=== PATIENT | female | born 1970 | race Caucasian/White ===

== ENCOUNTER 2017-03-03 21:26 | Inpatient (IN) ==
--- NOTE | 2017-03-03 21:51 | Emergency Department Note ---
Disposition Clinical Impression: Community acquired pneumonia Qualifiers: Laterality: right Lung location: lower lobe of lung Qualified Code(s): J18.1 - Lobar pneumonia, unspecified organism Sepsis Qualifiers: Sepsis type: sepsis due to unspecified organism Qualified Code(s): A41.9 - Sepsis, unspecified organism Disposition: Admitted As Inpatient Condition: Good Referrals: Jaclyn Thomas ROLL HAND [Primary Care Provider] - Forms: ED Satisfaction Letter SOB HPI - General Chief Complaint: ED Shortness of Breath/Dyspnea Stated Complaint: possible pneumonia came from [facility] Time Seen by Provider: 03/03/17 21:33 Source: patient Mode of arrival: private vehicle Limitations: no limitations Nursing Notes Reviewed: Yes Vital Signs Reviewed: Yes - History of Present Illness 47-year-old female history of non-oxygen dependent COPD who presents to the ER due to cough and fever with pneumonia. Reports that she started feeling unwell on Sunday. She was having fevers up to 104 at home. She states today she developed a cough and was seen at urgent care. She was told showed pneumonia was found to be hypoxic there. Patient presents here 88% on room air. She denies any chest pain. No sore throat, nausea, vomiting, diarrhea. No abdominal pain. She denies a history of cardiac disease, DVT or PE. Reviewed her prior x-ray showing right lower lobe pneumonia. She is noted to be tachycardic and hypoxic here. Placed on nasal cannula with resolution of hypoxia. Pt Subjective Complaint: shortness of breath, cough Onset (ago): day(s) Context: recent illness Severity: moderate Consistency/Duration: constant Improves with: nothing Worsens with: nothing Known history of: COPD Associated symptoms: Reports: fever, cough. Denies: chest pain, sputum production Treatment prior to arrival: none Cough present: Yes Cough Description: Involuntary Cough Frequency: Intermittent Sputum production: Yes Sputum Amount: None - Related Data Home oxygen amount: none Home Medications Medication Instructions Recorded Confirmed Proair Hfa 05/14/16 Spiriva 05/14/16 05/14/16 Symbicort 160/4.5 05/14/16 Previous Rx's Medication Instructions Recorded Azithromycin [Zithromax] 250 mg PO DAILY #6 tablet 05/14/16 Benzonatate [Tessalon] 200 mg PO TID PRN #30 capsule 05/14/16 GuaiFENesin ER [Mucinex] 600 mg PO BID #20 tbbp.12hr 05/14/16 methylPREDNISolone [Medrol] 4 mg PO TAPER #21 tablet 05/14/16 Allergies Allergy/AdvReac Type Severity Reaction Status Date / Time No Known Allergies Allergy Verified 05/14/16 17:09 All systems ED: reviewed and negative except as stated. Constitutional: Reports: fever, chills Cardiovascular: Denies: chest pain Respiratory: Reports: cough, dyspnea. Denies: sputum production Gastrointestinal: Denies: abdominal pain, nausea, vomiting Past Medical History - Past Medical History Attestation: Yes The following information was validated with the patient. 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 No wheezing). Absent: wheezes, prolonged expiratory phase - Cardiovascular Cardiovascular exam: Present: normal rhythm, tachycardia, normal heart sounds - Abdominal Exam Abdominal exam: Present: soft, Non-Tender. Absent: tenderness - Extremities Exam Extremities exam: Present: normal inspection, full ROM - Expanded Upper Extremity Exam Shoulder exam: Present: normal inspection, full ROM Arm exam: Present: normal inspection, full ROM Elbow exam: Present: normal inspection, full ROM Forearm/Wrist exam: Present: normal inspection, full ROM Hand exam: Present: normal inspection, full ROM - Expanded Lower Extremity Exam Hip/Pelvis exam: Present: normal inspection, full ROM Upper leg exam: Present: normal inspection, full ROM Knee exam: Present: normal inspection, full ROM Lower leg exam: Present: normal inspection, full ROM Ankle exam: Present: normal inspection, full ROM Foot/toe exam: Present: normal inspection, full ROM Neurovascular/Tendon exam: Absent: motor deficit, sensory deficit - Neurological Exam Neurological exam: Present: alert - Psychiatric Psychiatric exam: Present: normal affect - Skin Skin exam: Present: warm, dry, intact Course Course Narrative: Patient seen and examined. Placed on nasal cannula here. We will obtain an EKG as well as labs including lactate and blood cultures. - Reevaluation(s) Reevaluation #1: Discussed results of imaging and labs with the patient. Heart rate has improved here. She is currently on 4 L nasal cannula. Patient given Rocephin and Zithromax. Patient agreeable with being admitted to the hospital. Vital Signs Temperature 99.5 F 03/03/17 21:29 Pulse Rate 76 03/03/17 21:29 Respiratory Rate 22 03/03/17 21:29 Blood Pressure 99/57 03/03/17 21:29 O2 Sat by Pulse Oximetry 98 03/03/17 21: Temperature 99.5 F 03/03/17 21:29 Pulse Rate 96 03/04/17 01:19 EDT Respiratory Rate 18 03/04/17 01:19 EDT Blood Pressure 101/61 03/04/17 01:19 EDT O2 Sat by Pulse Oximetry 96 03/04/17 01:19 EDT Oxygen Delivery Oxygen Delivery Nasal Cannula Shortness of Breath/Dyspnea - [facility] Narrative Medical decision making narrative: 47-year-old female presents to the ER due to pneumonia from urgent care. Fever since Sunday then cough today. History of COPD however does not require oxygen supplementation. EKG does show sinus tachycardia. Chest x-ray with concern for right lower lung pneumonia. Given her tachycardia and hypoxia we obtained a CT of her chest which shows no evidence of PE with a right lower lobe pneumonia. Patient has an elevated white count of 17 here. Lactic acid is normal. Patient given 2 L of normal saline as well as Rocephin and Zithromax. Admitted to the hospitalist service for pneumonia and sepsis. - Lab Data Lab results reviewed: Yes I reviewed the patient's lab results. Result diagrams: 03/03/17 21:53 03/03/17 21:53 Lab Results 03/03/17 03/03/17 03/03/17 Range/Units 21:53 21:53 21:53 WBC 17.5 H (4.3-11.1) K/mcL RBC 3.88 (3.82-4.97) M/mcL Hgb 11.4 L (11.5-15.4) g/dL Hct 33.8 L (35.3-44.9) % MCV 87.1 (83.0-100.0) fL MCH 29.4 (28.0-33.3) pg MCHC 33.7 (31.6-35.5) g/dL RDW 15.0 H (11.5-14.5) % Plt Count 285 (140-400) K/mcL MPV 9.5 (9.4-12.4) fL Immature Gran % 2.9 (0-4) % Seg Neutrophils % 82.1 % Lymphocytes % 4.6 % Monocytes % 10.3 % Eosinophils % 0.0 % Basophils % 0.1 % Neutrophils # 14.4 H (1.6-8.9) K/mcL Lymphocytes # 0.8 (0.6-4.6) K/mcL Monocytes # 1.8 H (0.0-1.3) K/mcL Eosinophils # 0.0 (0.0-0.6) K/mcL Basophils # 0.0 (0.0-0.2) K/mcL Sodium 128 L (136-145) mEq/L Potassium 3.6 (3.5-4.5) mEq/L Chloride 94 L (98-109) mEq/L Carbon Dioxide 23 (19-29) mEq/L BUN 23 H (7-20) mg/dL Creatinine 0.68 (0.57-1.11) mg/dL Est GFR ( Amer) > 60 (> 60) Est GFR (Non-Af Amer) > 60 (> 60) BUN/Creatinine Ratio 34 H (6-26) Glucose 121 H (70-99) mg/dL Calculated Osmolality 271 L (280-300) Lactic Acid 1.4 (0.5-2.2) mmol/L Calcium 9.1 (8.6-10.8) mg/dL Troponin I (0-0.03) ng/mL B-Natriuretic Peptide (0-100) pg/mL Ur Specimen Adequacy Urine Color (Yellow) Urine Clarity (Clear) Urine pH (5.0-8.0) pH Units Ur Specific [place] (1.010-1.025) Urine Protein (Neg-Trace) mg/dL Urine Glucose (UA) (Normal) mg/dL Urine Ketones (Negative) mg/dL Urine Blood (Negative) Urine Nitrite (Negative) Urine Bilirubin (Negative) Urine Urobilinogen (Normal) mg/dL Ur Leukocyte Esterase (Negative) Ur Culture Indicated? (NO) 03/03/17 03/03/17 03/03/17 Range/Units 21:53 21:53 22:12 WBC (4.3-11.1) K/mcL RBC (3.82-4.97) M/mcL Hgb (11.5-15.4) g/dL Hct (35.3-44.9) % MCV (83.0-100.0) fL MCH (28.0-33.3) pg MCHC (31.6-35.5) g/dL RDW (11.5-14.5) % Plt Count (140-400) K/mcL MPV (9.4-12.4) fL Immature Gran % (0-4) % Seg Neutrophils % % Lymphocytes % % Monocytes % % Eosinophils % % Basophils % % Neutrophils # (1.6-8.9) K/mcL Lymphocytes # (0.6-4.6) K/mcL Monocytes # (0.0-1.3) K/mcL Eosinophils # (0.0-0.6) K/mcL Basophils # (0.0-0.2) K/mcL Sodium (136-145) mEq/L Potassium (3.5-4.5) mEq/L Chloride (98-109) mEq/L Carbon Dioxide (19-29) mEq/L BUN (7-20) mg/dL Creatinine (0.57-1.11) mg/dL Est GFR ( Amer) (> 60) Est GFR (Non-Af Amer) (> 60) BUN/Creatinine Ratio (6-26) Glucose (70-99) mg/dL Calculated Osmolality (280-300) Lactic Acid (0.5-2.2) mmol/L Calcium (8.6-10.8) mg/dL Troponin I 0.00 (0-0.03) ng/mL B-Natriuretic Peptide 11 (0-100) pg/mL Ur Specimen Adequacy See below A Urine Color Red A (Yellow) Urine Clarity Clear (Clear) Urine pH 6.0 (5.0-8.0) pH Units Ur Specific [place] > 1.030 H (1.010-1.025) Urine Protein 100 H (Neg-Trace) mg/dL Urine Glucose (UA) Normal (Normal) mg/dL Urine Ketones 15 H (Negative) mg/dL Urine Blood Large H (Negative) Urine Nitrite Negative (Negative) Urine Bilirubin Small H (Negative) Urine Urobilinogen Normal (Normal) mg/dL Ur Leukocyte Esterase Small H (Negative) Ur Culture Indicated? YES A (NO) - Radiology Data Radiology results reviewed: Yes I reviewed the patient's radiology results. Chest CTA 03/03/17 22:26 IMPRESSION: 1. No evidence of pulmonary embolism. 2. Right lower lobe pneumonia. 3. Mild right hilar lymphadenopathy. 4. Severe emphysema. D/ / 03/03/2017 23:08:21 Rio Lin MD / Marielena Gibson Interpreting Provider: Rio Lin MD - EKG Data EKG attestation: Yes I reviewed and interpreted this EKG. EKG results narrative: EKG demonstrates sinus tachycardia with a rate of 116. Normal axis. Normal intervals. Normal R-wave progression. No gross ST elevations or depressions. No acute ischemic findings. S.B.A.R. - S.B.A.R. Situation: Demographics, MOA Background: Presenting Complaint, Relevant PMH, Meds, & Allergies Assessment: Vital Signs, Course and respsone to treatment, Exam Concerns, Patient/Family Expectation, Pertinant Lab Results Recommendation: Barrier(s) to disposition, Recommendation based on pending studies, treatments, or consults S.B.A.R. Report Given to: Dr. Martinez Attestation Statement - Attestation Attestation: I, Tung Valera DO, examined this patient [id number] and my medical decision-making was reviewed with Dr. Sha Flor, Resident Physician. I agree with the documented findings, disposition and treatment plan as described except to the extent set forth below. Please see my progress notes for details. 47-year-old female presents emergency room from urgent care facility where she was evaluated and diagnosed with a right midlobe pneumonia. Patient is a productive cough fevers chills tachycardia and tachypnea at home for the last 2- 3 days. Patient has atypical presentation for middle lobe pneumonia at this time considering she is a generally healthy female except for COPD. Patient will have CT angiography of the chest secondary to persistent tachycardia. Infectious etiology is concerning on initial presentation the pulmonary emboli cannot be ruled out. Laboratory workup to be determined completed at this point. Antibiotic regimen to be started. Patient also has a grossly contaminated urine. She has no specific abdominal pain or symptoms and evaluation. Lungs are diminished with coarse breath sounds on the right side worse than the left. Heart is tachycardic but regular. Abdomen is soft nontender nondistended with no guarding no rigidity. Patient moves all 4 extremities and answers questions appropriately without any difficulty. Patient will most likely need admission the hospital for definitive evaluation and treatment. See detailed documentation of physical exam, medical intervention, medical decision-making and disposition in the resident physician' s note. Patient is currently on her menstrual cycle and has blood in her urine Patient admitted without any complication. No acute changes or issues at this point.
[2017-03-03] MEDS ORDERED: 0.9 % Sodium Chloride 1,000 ML IVC ONE ×2 (21:59→23:01)
[2017-03-03 22:04] LABS: Basophils % 0.1 %; Hematocrit 33.8 % (35.3-44.9); Hemoglobin 11.4 g/dL (11.5-15.4); Immature Granulocytes % 2.9 % (0-4); Lymphocytes # 0.8 K/mcL (0.6-4.6); Lymphocytes % 4.6 %; Mean Corpuscular HGB Conc 33.7 g/dL (31.6-35.5); Mean Corpuscular Hemoglobin 29.4 pg (28.0-33.3); Mean Corpuscular Volume 87.1 fL (83.0-100.0); Mean Platelet Volume 9.5 fL (9.4-12.4); Monocytes # 1.8 K/mcL (0.0-1.3); Monocytes % 10.3 %; Neutrophils # 14.4 K/mcL (1.6-8.9); Platelet Count 285 K/mcL (140-400); Red Blood Count 3.88 M/mcL (3.82-4.97); Segmented Neutrophils % 82.1 %
[2017-03-03 22:16] LABS: BUN/Creatinine Ratio 34 (6-26); Blood Urea Nitrogen 23 mg/dL (7-20); Calcium 9.1 mg/dL (8.6-10.8); Carbon Dioxide 23 mEq/L (19-29); Chloride 94 mEq/L (98-109); Glucose 121 mg/dL (70-99); Osmolality,Calculated 271 (280-300); Potassium 3.6 mEq/L (3.5-4.5); Sodium 128 mEq/L (136-145); eGFR For African Americans > 60 (> 60); eGFR For Non-African Americans > 60 (> 60)
[2017-03-03 22:34] LABS: Bilirubin,Urine Small (Negative); Blood,Urine Large (Negative); Clarity,Urine Clear (Clear); Color,Urine Red (Yellow); Glucose,Urine (UA) Normal (Normal); Ketones,Urine 15 mg/dL (Negative); Leukocyte Esterase,Urine Small (Negative); Nitrite,Urine Negative (Negative); Protein,Urine 100 mg/dL (Neg-Trace); Specific Gravity,Urine > 1.030 (1.010-1.025); Urobilinogen,Urine Normal (Normal)
[2017-03-03] MEDS ORDERED: Azithromycin 500 MG in D5% in Water 250 ML IVPB ONE ×2 (22:54→23:13)
[2017-03-04] MEDS ORDERED: Acetaminophen 325 MG TABLET PO PRN (02:06)
[2017-03-04] MEDS ORDERED: Naloxone 0.4 MG/ML INJ IVP PRN (02:06)
[2017-03-04] MEDS ORDERED: Ondansetron 4 MG/2 ML VIAL IVP PRN (02:06)
[2017-03-04] MEDS ORDERED: Ketorolac 30 MG/ML VIAL IVP PRN (02:06)
--- NOTE | 2017-03-04 02:12 | Internal Med History&Physical ---
Date of Encounter: 03/04/17 Time of Encounter: 02:10 Assessment and Plan (1) Acute respiratory failure with hypoxia Current visit: Yes Status: Acute Acute hypoxic respiratory failure secondary to acute COPD exacerbation due to Sima acquired pneumonia, unknown agent Continue Rocephin and azithromycin, DuoNeb nebs, Solu-Medrol and oxygen therapy Blood cultures Omeprazole for GI prophylaxis and subcutaneous heparin for DVT prophylaxis patient will be admitted as inpatient, expected stay more than 2 midnights. Full code. Time spent on this admission 40 minutes (2) Hyponatremia Current visit: Yes Status: Acute Likely secondary to poor oral intake Continue IV fluids Send urine sodium and urine osmolality (3) Tobacco abuse Current visit: Yes Status: Acute Smoking cessation counseling given for 5 min . Nicotine patch (4) Community acquired pneumonia Current visit: Yes Status: Acute Qualifiers: Laterality: right Lung location: lower lobe of lung Qualified Code(s): J18.1 - Lobar pneumonia, unspecified organism (5) Sepsis Current visit: Yes Status: Acute Qualifiers: Sepsis type: sepsis due to unspecified organism Qualified Code(s): A41.9 - Sepsis, unspecified organism Internal Medicine - H&P: HPI Chief complaint: Fever Admitted From: Emergency Dept History of present illness: Ms. Villalobos is a 47 year old female with a past medical history of COPD not oxygen dependent, tobacco use who came to the emergency room complaining of a fever of 104. Earlier yesterday, she went to an urgent care facility where she was diagnosed with a right lower lobe pneumonia on x-ray. She was given a dose of Solu-Medrol and Rocephin. She came to the's ER complaining of worsening symptoms, heart rate was 133 saturating 88% on room air White blood cell count was 17.[address] scan of the chest showed no pulmonary emboli and confirmed the diagnosis of the right lower lobe pneumonia. Patient denies any sick contacts other than her son having a cold last week. She was given Rocephin and azithromycin. Blood pressure was 99/57 but responded to fluids. Says that she has not been eating for the past few days, exactly since Sunday. Very nauseous Past Med Surg Social Fam HX - Past Medical History Medical history: COPD (Not oxygen dependent), other (Tobacco) - Past Surgical History Surgical History: other (Tubal ligation) - Social History Smoking Status: Current every day smoker Packs per day: 10 cigarettes a day Smokeless Tobacco Status: No Alcohol use: none Drug use: none - Additional Family History Additional family history: Denies family history Internal Medicine - H&P: Meds Azithromycin [Zithromax] 250 mg PO DAILY #6 tablet 05/14/16 [Rx] Benzonatate [Tessalon] 200 mg PO TID PRN #30 capsule 05/14/16 [Rx] GuaiFENesin ER [Mucinex] 600 mg PO BID #20 tbbp.12hr 05/14/16 [Rx] Proair Hfa 05/14/16 [History] Spiriva 05/14/16 [History] Symbicort 160/4.5 05/14/16 [History] methylPREDNISolone [Medrol] 4 mg PO TAPER #21 tablet 05/14/16 [Rx] 3 Allergy/AdvReac Type Severity Reaction Status Date / Time No Known Allergies Allergy Verified 05/14/16 17:09 All Systems PM: A 10-system review of systems was performed and is negative for pertinent findings except as documented above in the HPI. Review of systems: Denies chest pain, other systems out of the 10 review were negative - Constitutional Vitals: Temp Pulse Resp BP Pulse Ox 97.7 F 97 93 98/63 96 03/04/17 01:15 EST 03/04/17 01:15 EST 03/04/17 01:15 EST 03/04/17 01:15 EST 03/04/17 01:19 EDT General appearance: Present: A&O X 3 - Head Head exam: Present: atraumatic, normocephalic - Eye Eye exam: Present: PERRL, conjuntiva pink, sclera anicteric Pupils: Present: PERRL - Neck Neck exam general surgery: Present: supple, trachea midline. Absent: lymphadenopathy - Respiratory Respiratory exam: Present: CTAB. Absent: accessory muscle use, rales, rhonchi, wheezes Additional comments: Blunted breath sounds in the right base, diffuse mild wheezing - Cardiovascular Cardiovascular exam: Present: RRR, +S1, +S2. Absent: diastolic murmur, gallop, rubs, systolic murmur - GI/Abdominal GI/Abdominal exam: Present: normal bowel sounds, soft, no peritoneal signs. Absent: distended, tenderness - Extremities Exam Extremities exam: Present: warm, radial pulses palpable and symmetrical. Absent : calf tenderness, cyanotic, pedal edema - Neurological Exam Neurological exam: Present: CN II-XII intact, oriented X3, no focal deficits. Absent: pronater drift, facial droop, speech deficit - Skin Skin exam: Present: dry, intact Internal Med - H&P Results - Labs CBC & Chem 7: 03/03/17 21:53 03/03/17 21:53
[2017-03-04] MEDS: cefTRIAXone 1,000 MG in Water for inj. (sterile) 10 ML IVP SCH (02:50)
[2017-03-04] MEDS: 0.9 % Sodium Chloride 1,000 ML IVC SCH ×3 (02:51→22:35)
[2017-03-04] MEDS: MethylPREDNISolone 40 MG/ML VIAL IVP SCH ×3 (03:06→20:28)
[2017-03-04] MEDS: Ipratropium/Albuterol Neb 3 ML IH SCH ×4 (03:52→22:18)
[2017-03-04 04:42] LABS: Hematocrit 30.6 % (35.3-44.9); Mean Corpuscular HGB Conc 32.7 g/dL (31.6-35.5); Mean Corpuscular Hemoglobin 28.7 pg (28.0-33.3); Mean Corpuscular Volume 87.7 fL (83.0-100.0); Mean Platelet Volume 10.4 fL (9.4-12.4); Platelet Count 258 K/mcL (140-400); Red Blood Count 3.49 M/mcL (3.82-4.97); Red Cell Distribution Width 15.3 % (11.5-14.5)
[2017-03-04 04:59] LABS: BUN/Creatinine Ratio 33 (6-26); Blood Urea Nitrogen 16 mg/dL (7-20); Carbon Dioxide 22 mEq/L (19-29); Chloride 103 mEq/L (98-109); Glucose 120 mg/dL (70-99); Osmolality,Calculated 278 (280-300); Potassium 3.6 mEq/L (3.5-4.5); Sodium 133 mEq/L (136-145); eGFR For African Americans > 60 (> 60); eGFR For Non-African Americans > 60 (> 60)
[2017-03-04] MEDS: *HR* Heparin 5,000 UNIT/ML VIAL SQ SCH ×3 (05:38→22:31)
[2017-03-04] MEDS: Nicotine 21 MG PATCH.TD24 TD SCH (08:46)
[2017-03-04 13:34] LABS: Sodium, Urine < 20.0 mEq/L
--- NOTE | 2017-03-04 13:34 | Internal Med Progress Note ---
Date of Encounter: 03/04/17 Time of Encounter: 13:32 - Assessment and plan (1) Sepsis Current Visit: Yes Status: Acute Assessment and plan: She did meet sepsis criteria with elevated WBC, Fever, Tachycardia and source of Inf as pneumonia improving Cont empirical abx Rocephin + Azithromycin Qualifiers: Sepsis type: sepsis due to unspecified organism Qualified Code(s): A41.9 - Sepsis, unspecified organism (2) Pneumonia Current Visit: No Status: Acute Assessment and plan: Mostly bacterial PNA Improving cont empirical abx Rocephin + Azithromycin Duoneb and O2 Will follow up on blood cx /sputum cx Qualifiers: Laterality: right Lung location: lower lobe of lung Qualified Code(s): J18.1 - Lobar pneumonia, unspecified organism (3) Acute respiratory failure with hypoxia Current Visit: Yes Status: Acute Assessment and plan: Due to COPD exacerbation with PNA (4) COPD exacerbation Current Visit: Yes Status: Acute Assessment and plan: Still has diffuse wheezing cont high dose IV steroids + Duoneb and O2 (5) Hyponatremia Current Visit: Yes Status: Acute Assessment and plan: Due to dehydration improved cont IVF (6) Tobacco abuse Current Visit: Yes Status: Acute Assessment and plan: Counseled to quit on nicotine patch - Subjective Interval history: Ms. Villalobos is a 47 year old female with a past medical history of COPD not oxygen dependent, tobacco use who came to the emergency room complaining of a fever of 104, progressively worsening SOB and Cough with no expectoration. She had CTA of chest done which showed RLL PNA and severe emphysema. She was admitted in the hospital for PNA and Hypoxic resp fialure. She was started on empirical abx and Iv steroids. She stated she is feeling little better now. However still has moderate SOB / SOMMERS - Constitutional Vitals: Temp Pulse Resp BP Pulse Ox 98.2 F 100 18 100/63 93 03/04/17 10:22 03/04/17 10:22 03/04/17 11:05 03/04/17 10:22 03/04/17 11:05 General appearance: Present: mild distress, A&O X 3, answers questions appropriately - Head Head exam: Present: atraumatic, normal inspection - Respiratory Respiratory exam: Present: decreased breath sounds, wheezes (severe , diffuse). Absent: rales, respiratory distress, rhonchi - Cardiovascular Cardiovascular exam: Present: +S1, +S2, tachycardia. Absent: diastolic murmur, gallop, rubs, systolic murmur - GI/Abdominal GI/Abdominal exam: Present: normal bowel sounds, soft. Absent: rebound, rigid, tenderness - Extremities Exam Extremities exam: Absent: calf tenderness, pedal edema, tenderness - Back Exam Back exam: Absent: CVA tenderness (L), CVA tenderness (R) - Neurological Exam Neurological exam: Present: alert, oriented X3 - Psychiatric Psychiatric exam: Present: normal affect, normal mood Internal Medicine: Result - Labs CBC & Chem 7: 03/04/17 03:33 03/04/17 03:33 Labs: Short CBC 03/04/17 Range/Units 03:33 WBC 14.7 H (4.3-11.1) K/mcL Hgb 10.0 L (11.5-15.4) g/dL Hct 30.6 L (35.3-44.9) % Plt Count 258 (140-400) K/mcL BMP 03/04/17 03:33 Sodium 133 L Potassium 3.6 Chloride 103 Carbon Dioxide 22 BUN 16 Creatinine 0.48 L Glucose 120 H Calcium 8.0 L Consult Discharge Plan - Plan Referrals: Jaclyn Thomas, ALMOND HULLER [Primary Care Provider] -
[2017-03-04 14:10] LABS: Osmolality,Urine 625 mOsm/kg (300-1090)
[2017-03-04] MEDS: Azithromycin 500 MG in D5% in Water 250 ML IVPB SCH (22:31)
[2017-03-05] MEDS: Ipratropium/Albuterol Neb 3 ML IH SCH ×4 (04:15→21:16)
[2017-03-05 04:23] LABS: BUN/Creatinine Ratio 27 (6-26); Blood Urea Nitrogen 13 mg/dL (7-20); Calcium 8.3 mg/dL (8.6-10.8); Carbon Dioxide 21 mEq/L (19-29); Chloride 109 mEq/L (98-109); Glucose 112 mg/dL (70-99); Osmolality,Calculated 287 (280-300); Potassium 3.1 mEq/L (3.5-4.5); Sodium 138 mEq/L (136-145); eGFR For African Americans > 60 (> 60); eGFR For Non-African Americans > 60 (> 60)
[2017-03-05] MEDS: MethylPREDNISolone 40 MG/ML VIAL IVP SCH ×3 (05:10→20:24)
[2017-03-05] MEDS: *HR* Heparin 5,000 UNIT/ML VIAL SQ SCH ×3 (05:10→22:54)
[2017-03-05] MEDS: 0.9 % Sodium Chloride 1,000 ML IVC SCH ×2 (07:54→17:02)
[2017-03-05] MEDS: Nicotine 21 MG PATCH.TD24 TD SCH (07:55)
[2017-03-05] MEDS: cefTRIAXone 1,000 MG in Water for inj. (sterile) 10 ML IVP SCH (07:55)
[2017-03-05] MEDS: Vitamin B Complex/Vit C/Vit E 1 EACH TABLET PO SCH (08:05)
[2017-03-05] MEDS: Tiotropium 18 MCG inhalation IH SCH (09:14)
[2017-03-05] MEDS: Budesonide/Formoterol 80/4.5 MDI IH SCH ×2 (09:14→21:15)
--- NOTE | 2017-03-05 09:46 | Electrocardiograph Report ---
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
--- NOTE | 2017-03-05 10:00 | Internal Med Progress Note ---
Date of Encounter: 03/05/17 Time of Encounter: 09:00 - Assessment and plan (1) Acute respiratory failure with hypoxia Current Visit: Yes Status: Acute Assessment and plan: Acute hypoxic respiratory failure - secondary to right lower lobe community- acquired pneumonia, present on admission, likely bacterial and acute COPD exacerbation - improving slowly Continue DuoNeb breathing treatment, Symbicort, Spiriva, IV Solu-Medrol, O2 via nasal cannula Continue IV Rocephin, IV Azithromycin Cultures - no growth CTA chest - no evidence of PE, right lower lobe pneumonia, severe emphysema, mild right hilar lymphadenopathy EKG - sinus tachycardia with no acute ST-T changes Troponin - negative BNP - 11 Lactic acid - 1.4 Cardiac telemetry, continuous pulse ox, labs in a.m., monitor closely (2) Sepsis Current Visit: Yes Status: Acute Assessment and plan: She did meet sepsis criteria with elevated WBC, Fever, Tachycardia and source of Inf as community-acquired pneumonia - now improving Cont empirical abx Rocephin + Azithromycin Qualifiers: Sepsis type: sepsis due to unspecified organism Qualified Code(s): A41.9 - Sepsis, unspecified organism (3) Community acquired pneumonia Current Visit: Yes Status: Acute Assessment and plan: Right lower lobe community-acquired pneumonia, present on admission, likely bacterial Plan as above Qualifiers: Laterality: right Lung location: lower lobe of lung Qualified Code(s): J18.1 - Lobar pneumonia, unspecified organism (4) COPD exacerbation Current Visit: Yes Status: Acute Assessment and plan: Acute exacerbation of COPD - symptoms slowly improving Plan as above (5) Tobacco abuse Current Visit: Yes Status: Acute Assessment and plan: Counseled about cessation, nicotine patch (6) DVT prophylaxis Current Visit: Yes Status: Acute Assessment and plan: Continue heparin subcutaneous - Time Spent With Patient 25 - 35 minutes - Subjective Interval history: Examined this morning. Patient is awake and alert. Not in any distress. Denies chest pain. States her shortness of breath has improved. Tolerating oral diet. No fever. Hemodynamically stable. Complains of mild cough intermittently. No other acute events or complaints. - Constitutional Vitals: Temp Pulse Resp BP Pulse Ox 98.1 F 105 16 114/69 90 03/05/17 07:15 03/05/17 07:15 03/05/17 09:15 03/05/17 07:15 03/05/17 09:15 General appearance: Present: cachectic, cooperative, A&O X 3, pleasant, no acute distress, underweight, answers questions appropriately - Head Head exam: Present: atraumatic - Eye Eye exam: Present: EOMI - ENT ENT exam: Present: mucous membranes moist - Respiratory Respiratory exam: Present: wheezes (Mild bilateral). Absent: accessory muscle use, chest wall tenderness, rales, rhonchi, tachypnea - Cardiovascular Cardiovascular exam: Present: RRR, +S1, +S2 - GI/Abdominal GI/Abdominal exam: Present: soft. Absent: distended, firm, guarding, tenderness - Extremities Exam Extremities exam: Present: radial pulses palpable and symmetrical. Absent: calf tenderness, cyanotic, pedal edema - Neurological Exam Neurological exam: Present: alert, oriented X3, no focal deficits. Absent: facial droop, speech deficit Internal Medicine: Result - Labs CBC & Chem 7: 03/04/17 03:33 03/05/17 03:15 Labs: BMP 03/05/17 03:15 Sodium 138 Potassium 3.1 L Chloride 109 Carbon Dioxide 21 BUN 13 Creatinine 0.48 L Glucose 112 H Calcium 8.3 L Consult Discharge Plan - Plan Referrals: Jaclyn Thomas, [facility] [Primary Care Provider] -
[2017-03-05] MEDS: Azithromycin 500 MG in D5% in Water 250 ML IVPB SCH (22:55)
[2017-03-06] MEDS: Ipratropium/Albuterol Neb 3 ML IH SCH ×2 (03:51→11:10)
[2017-03-06] MEDS: MethylPREDNISolone 40 MG/ML VIAL IVP SCH (04:33)
[2017-03-06] MEDS: 0.9 % Sodium Chloride 1,000 ML IVC SCH (04:33)
[2017-03-06 06:17] LABS: BUN/Creatinine Ratio 24 (6-26); Blood Urea Nitrogen 12 mg/dL (7-20); Calcium 8.1 mg/dL (8.6-10.8); Carbon Dioxide 21 mEq/L (19-29); Chloride 110 mEq/L (98-109); Glucose 129 mg/dL (70-99); Osmolality,Calculated 293 (280-300); Potassium 3.6 mEq/L (3.5-4.5); Sodium 141 mEq/L (136-145); eGFR For African Americans > 60 (> 60); eGFR For Non-African Americans > 60 (> 60)
[2017-03-06] MEDS: *HR* Heparin 5,000 UNIT/ML VIAL SQ SCH (06:20)
[2017-03-06 06:53] VITALS: BP 123/70
[2017-03-06] MEDS: Vitamin B Complex/Vit C/Vit E 1 EACH TABLET PO SCH (08:53)
[2017-03-06] MEDS: cefTRIAXone 1,000 MG in Water for inj. (sterile) 10 ML IVP SCH (08:53)
[2017-03-06] MEDS: Nicotine 21 MG PATCH.TD24 TD SCH (08:58)
--- NOTE | 2017-03-06 09:55 | Discharge Summary ---
Date of Encounter: 03/06/17 Time of Encounter: 08:15 - Discharge Diagnosis (1) Acute respiratory failure with hypoxia Priority: Primary Status: Acute Comments: Acute hypoxic respiratory failure - secondary to right lower lobe community- acquired pneumonia, present on admission, likely bacterial and acute COPD exacerbation - now improved Continue DuoNeb breathing treatment, Symbicort, Spiriva, Prednisone, O2 via nasal cannula Continue PO Augmentin, PO Azithromycin Cultures - no growth CTA chest - no evidence of PE, right lower lobe pneumonia, severe emphysema, mild right hilar lymphadenopathy EKG - sinus tachycardia with no acute ST-T changes Troponin - negative BNP - 11 Lactic acid - 1.4 Patient insists on being discharged today, advised to return if symptoms worsen , follow up with PCP (2) Sepsis Priority: Primary Status: Acute Comments: She did meet sepsis criteria with elevated WBC, Fever, Tachycardia and source of Inf as community-acquired pneumonia - now improved Cont empirical abx Augmentin + Azithromycin Qualifiers: Sepsis type: sepsis due to unspecified organism Qualified Code(s): A41.9 - Sepsis, unspecified organism (3) Community acquired pneumonia Priority: Primary Status: Acute Comments: Right lower lobe community-acquired pneumonia, present on admission, likely bacterial Plan as above Qualifiers: Laterality: right Lung location: lower lobe of lung Qualified Code(s): J18.1 - Lobar pneumonia, unspecified organism (4) COPD exacerbation Priority: Primary Status: Acute Comments: Acute exacerbation of COPD - symptoms now improved Plan as above (5) Tobacco abuse Priority: Secondary Status: Chronic Comments: Counseled about cessation, nicotine patch - Discharge Medications Prescriptions: Ipratropium/Albuterol Neb [Duoneb] 3 ml IH [id number] PRN #30 inhsol PRN Reason: Shortness Of Breath/Wheezing Amoxicillin/Clavulanate [Augmentin] 875 mg PO BIDWM 10 Days #20 tablet Azithromycin [Zithromax] 250 mg PO DAILY 5 Days #5 tablet Guaifenesin [Mucinex] 600 mg PO BID #10 tab.er.12h Nicotine Patch [Nicoderm] 21 mg TD DAILY #30 patch.td24 predniSONE [PredniSONE] 20 mg PO DAILY #10 tablet Home Medications: Albuterol Sulfate [Proair Hfa] 2 puff IH Q4H PRN 05/14/16 [History] Budesonide/Formoterol 80/4.5 [Symbicort 80/4.5] 2 puff IH BID 05/14/16 [History ] Tiotropium Withams [Spiriva Respimat] 2 puff IH DAILY 05/14/16 [History] Aspirin/Acetaminophen/Caffeine [Excedrin Extra Strength Caplet] 1 each PO Q6H PRN 03/04/17 [History] Calcium Carbonate/Vitamin D3 [Calcium 500-Vit D3 200 Tablet] 1 each PO DAILY 09/13 [History] Fexofenadine HCl 180 mg PO DAILY 03/04/17 [History] Fluticasone Propionate Nasal [Flonase] 50 mcg NS DAILY 03/04/17 [History] Vitamin B Complex [B Complex] 1 each PO DAILY 03/04/17 [History] Amoxicillin/Clavulanate [Augmentin] 875 mg PO BIDWM 10 Days #20 tablet 03/06/17 [Rx] Azithromycin [Zithromax] 250 mg PO DAILY 5 Days #5 tablet 03/06/17 [Rx] Guaifenesin [Mucinex] 600 mg PO BID #10 tab.er.12h 03/06/17 [Rx] Ipratropium/Albuterol Neb [Duoneb] 3 ml IH [id number] PRN #30 inhsol 03/06/17 [Rx] Nicotine Patch [Nicoderm] 21 mg TD DAILY #30 patch.td24 03/06/17 [Rx] predniSONE [PredniSONE] 20 mg PO DAILY #10 tablet 03/06/17 [Rx] Allergies/Adverse Reactions: 3 Allergy/AdvReac Type Severity Reaction Status Date / Time No Known Allergies Allergy Verified 05/14/16 17:09 Date of admission: 03/04/17 02:07 Primary care physician: Jaclyn Thomas CNP Anticipated date of discharge: 03/06/17 - Patient Status Disposition: Home, Self-Care Condition: Fair Functional capacity at discharge: independent ambulation Overall status at discharge: patient is progressing back to baseline - Discharge Instructions Instructions: Prednisone (By mouth), Amoxicillin/Clavulanate Potassium (By mouth), Azithromycin (By mouth), Nicotine (Absorbed through the skin), Ipratropium/Albuterol (By breathing) Follow Up With: Jaclyn Thomas CNP [Primary Care Provider] - 03/15/17 11:00 am Forms: Work/School Release, Inpatient Work/School Release - Diet and Activity Activity: increase activity as tolerated, resume usual activities as tolerated, wear oxygen at all times Diet: advance to your usual diet Hospital course: Ms. Villalobos is a 47 year old female with past medical history of COPD and chronic tobacco use. She presented to the ED with complaints of fever and cough. Patient admitted for immunity to pneumonia and acute respiratory failure with hypoxia. Patient also has acute exacerbation of COPD. She did not meet criteria for sepsis. She was started on empiric IV Rocephin and azithromycin. She was also on DuoNeb breathing treatment and IV steroids. Pneumonia was in the right lower lobe. She was also continued on Spiriva and Symbicort and O2 via nasal cannula. CTA chest is negative for PE. Troponin is negative. Patient's symptoms have now improved. She does qualify for home oxygen use. She has been counseled about smoking cessation. She is being discharged on Augmentin and azithromycin by mouth. She has been advised to continue DuoNeb breathing treatment and Symbicort and Spiriva. Also advised to continue tapering dose of steroids. Patient states she feels better and wants to go home. She continues to have a cough, and states it is improving. She is tolerating oral diet well and ambulating. Her COPD exacerbation is now improved and pneumonia is also improving. She has been advised to continue O2 via nasal cannula. Patient has been explained about her condition and plan of care in detail. She understood and agreed. No unanswered questions. No other acute events or complications during her stay in the hospital. She is being discharged in stable condition. Time spent discussing smoking cessation with patient: 3 to 10 minutes - Time Spent with Patient Total time spent providing and/or coordinating discharge services: Less than 30 minutes - Constitutional Vitals: Temp Pulse Resp BP Pulse Ox 98.5 F 94 14 123/70 91 03/06/17 06:48 03/06/17 06:48 03/06/17 06:48 03/06/17 06:48 03/06/17 06:48 General appearance: Present: cachectic, cooperative, A&O X 3, pleasant, no acute distress, underweight, answers questions appropriately - Head Head exam: Present: atraumatic - Eye Eye exam: Present: EOMI - ENT ENT exam: Present: mucous membranes moist - Respiratory Respiratory exam: Present: wheezes (Mild bibasilar, improved, otherwise clear to auscultation). Absent: accessory muscle use, chest wall tenderness, rales, rhonchi, tachypnea - Cardiovascular Cardiovascular exam: Present: RRR, +S1, +S2 - GI/Abdominal GI/Abdominal exam: Present: soft. Absent: distended, firm, guarding, tenderness - Extremities Exam Extremities exam: Present: radial pulses palpable and symmetrical. Absent: calf tenderness, cyanotic, pedal edema - Neurological Exam Neurological exam: Present: alert, oriented X3, no focal deficits. Absent: facial droop, speech deficit
[2017-03-06] MEDS: Budesonide/Formoterol 80/4.5 MDI IH SCH (11:10)
[2017-03-06] MEDS: Tiotropium 18 MCG inhalation IH SCH (11:11)
[2017-03-06] MEDS ORDERED: FLUARIX QUAD 2017-18 36MOS UP/PF 0.5 ML SYRINGE IM ONE (11:45)
== END 2017-03-06 15:13 | disposition home or self-care (01) | DRG 871 ==
LOC: EMEROO 21:26 → 3BNU 21:26 → SUATTDRO 03-04 02:07
PROVIDERS: ADMIT Internal Medicine; ATTEND Family Medicine